=== PATIENT | male | born 1985 ===

== ENCOUNTER 2024-09-12 11:52 | Inpatient (IN) | payer OTHER ==
[~2024-09-12] VITALS: Ht 180.3 cm; Wt 79.3 kg
[2024-09-12] MEDS ORDERED: HydrOXYzine Pamoate 50 MG Cap PO PRN (17:10)
[2024-09-12] MEDS ORDERED: Ibuprofen 600 MG Tab PO PRN (17:10)
[2024-09-12] MEDS ORDERED: LORazepam 2 MG/ML 1ML Injection IM PRN (17:10)
[2024-09-12] MEDS ORDERED: Ondansetron 4 MG SoluTab MM PRN (17:15)
[2024-09-12] MEDS ORDERED: Polyethylene Glycol 3350 17 gm PO PRN (17:15)
[2024-09-12] MEDS ORDERED: Melatonin 3 MG Tab PO PRN (17:15)
[2024-09-12] MEDS ORDERED: LORazepam 2 MG Tab PO PRN (17:15)
[2024-09-12] MEDS ORDERED: OLANZapine ODT 10 MG Tab MM PRN (17:15)
[2024-09-12] MEDS ORDERED: TraZODone HCl 50 MG Tab PO PRN (17:15)
[2024-09-12] MEDS ORDERED: Aluminum Hydroxide 320MG/5ML 473 ML PO PRN (17:20)
[2024-09-12] MEDS ORDERED: DiphenhydrAMINE HCl 50 MG Cap PO PRN (17:20)
[2024-09-12] MEDS ORDERED: Haloperidol Lactate Inj. 5 MG/ML Injection IM PRN (17:20)
[2024-09-12] MEDS ORDERED: DiphenhydrAMINE HCl 50 MG/ML 1ML Vial IV PRN (17:20)
[2024-09-12] MEDS ORDERED: Acetaminophen 325 MG TABLET PO PRN (17:20)
[2024-09-12] MEDS ORDERED: FLU VACC TS2024-25(6MOS UP)/PF 45 MCG/0.5 ML SYRINGE IM ONE (17:20)
[2024-09-12] MEDS ORDERED: Calcium Carbonate 500 MG Tab Chew PO PRN (17:20)
[2024-09-12] MEDS ORDERED: Haloperidol 5 MG Tab PO PRN (17:25)
[2024-09-12 18:10] VITALS: BP 105/75
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
--- NOTE | 2024-09-13 08:11 | NUR ---
AT 0800 AWAKENED PT TO LOOK AT HIS RASH ON HIS LEGS WITH SLIM RAY. SCATTERED REDNESS WITH DRY PATCHES PRESENT. SHOWS SIGNS OF SCRATCHING PRESENT. A FEW SPOTS OVER ARMS. NO SPOTS ON FEET OR BACK OR TRUNK OF BODY. ENCOURAGD NOT TO SCRATCH AND TO DO GOOD HAND WASHING. PT STATES THE RASH IS THE ALUMNIN COMING OUT OF HIS BODY FROM EATING FOODS THAT WAS IN CANS. HOSPITLIST DR. RAMACHANDRAN CALLED TO CONSULT ON PT TODAY. WILL CONTINUE TO MONITOR.
[2024-09-13 08:35] VITALS: BP 140/85
[2024-09-13] MEDS ORDERED: Multivitamins 1 Tab PO SCH (09:00)
[2024-09-13 09:44] VITALS: BP 105/75
[2024-09-13] MEDS ORDERED: OLANZapine ODT 10 MG Tab PO ONE (10:30)
--- NOTE | 2024-09-13 10:59 | NUR ---
AT [address] PT KNOW THAT [address] ALVARADO ORDERED A PILL FOR HIM. EXPLAINED TO PT THAT IT IS A NEW ORDER. PT AGREED TO TKE THE PILL. THEN CHANGED HIS MIND SAYING THAT WE ARE OVER MEDICATING HIM. HE SAID THAT HE WAS GIVEN TO MANY MEDS ALREADY. HE GOT LOUD AND UNREASONABLE. CORY SMALLS AND MYSELF ONCE AGAIN EXPLAINED TO THE PT THAT HE WILL GET IT 2 TIMES A DAY. PT BECAME INAPPROPIATE WITH WORDS TO STAFF AND THREATED TO KICK CORY WALLS. WAS CALLED TO COME ASSIST. DR. ALVARADO WAS CALLED ALSO PT SAID HE NEEDED TO HEAR IT FROM THE DR. ARRIVED. PT HAD GONE TO ROOM. LET PT HAVE A 5-10 MINUTES ALONE THEN AGREEABLE TO TAKE MED. HE TOOK THE MED. WILL LET PT STAY IN ROOM AND REGAIN HIS COMPOSUER AND CALM NOW. THOUGHT PROCESS DURING HIS OUT BURST PROCESS WAS NON RATIONAL AND INTENSE. WILL CONTINUE TO MONITOR.
--- NOTE | 2024-09-13 12:04 | NUR ---
PT JUST FINISHED LUNCH. SEEMS TO BE CALMER AT THIS TIME. WILL CONTINUE TO MONITOR.
--- NOTE | 2024-09-13 13:41 | NUR ---
HEARD YELLING AND WENT TO CHECK ON PT. ASKED IF HE IS OK. TOLD ME TO LEAVE HIS ROOM. PRESENT OUTSIDE THE DOOR WHEN TALKING TO PT. HE SAID TO MEENAKEN LEAVE HIS ROOM. REMINDED PT NOT TO YELL AND TO ASK FOR HELP IF HE NEEDS TO TALK. PT STATED " I WILL YELL IF I WANT TO." PT IS TALKING TO SELF WHEN LEAVING HIS DOOR AREA. PT HOLLERING OUT TO LEAVE HIM THE F ALONE. LEFT ROOM AND LET PT TALK WITH SELF. DID NOT GET TO ASK PT IF HE WAS HEARING VOICES HE WAS UNCOOPERATIVE." DIRECTOR NOTIFED AND WILL TALK WITH PT. WILL CONTINUE TO MONITOR
--- NOTE | 2024-09-13 13:49 | NUR ---
PT HEARD YELLING IN ROOM. PRIMARY RN TO ROOM TO ASK IF PT NEEDED HELP. PT YELLING PROFANITIES AT PRIMARY RN AND TOLD HER TO GET THE FUCK OUT. PRIMARY RN LEFT AND PT CONTINUED YELLING. THIS RN TO ROOM TO ASK IF HE NEEDED HELP. HE REPORTED THAT HE CAN YELL IF HE WANTS. THAT HE WILL RIP MY HEAD OFF AND SHIT DOWN MY NECK IF I TRIED TELLING HIM WHAT TO DO. THIS RN REMINDED PT THAT WE OTHER PT TO CONSIDER. PT YELLED THAT HE IS SCHIZOPHRENIC AND HE CAN DO WHAT THE FUCK EVER HE WANTS. HE AGAIN PHYSICALLY THREATENED THIS RN IF I DIDNT LEAVE HIS ROOM. PT LAYING IN BED WHILE YELLING AND MAKING THREATS. DOOR SHUT AND DIRECTOR AND MD NOTIFIED.
--- NOTE | 2024-09-13 15:56 | NUR ---
PT PACES UP AND DOWN THE HALLS FOR A FEW MINUTES THEN GOES TO HIS ROOM FOR A BIT. WHEN IN HALLS IS TALKING TO HIMSELF AND THROWING HANDS GESTURES LIKE FOR GANGS.
--- NOTE | 2024-09-13 16:52 | NUR ---
SHIFT SUMMARY: PT IS UP IN THE GROUP ROOM. WALKS IN AND OUT. NO TALKING TO HIS SELF AT THIS TIME. STILL DO NOT KNOW IF HE IS SUICIDAL HE WILL NOT OPENLY TALK ABOUT IT. HAS BEEN PACING IN THE HALLWAYS OR GOES INTO HIS ROOM. CAN HEAR HIM ATALKING TO HIMSELF BUT IT IS UNCLEAR WHAT HE IS SAYING. PT HAS HAD DELUSIONAL THOUGHTS WHEN HE IS VERBALIZING ANGER AT STAFF TODAY. HE HAS GONE INTO EAT MEALS AND DID NOT PARTICIPATE IN GROUPS. SEEN PT AND PT WILL RECEIVE ZYPREZA 20MG AT BEDTIME. WILL CONTINUE TO MONITOR PT.
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
[2024-09-13 20:36] VITALS: BP 116/79
[2024-09-13] MEDS ORDERED: OLANZapine ODT 10 MG Tab MM SCH ×2 (21:00)
[2024-09-13] MEDS ORDERED: OLANZapine ODT 5 MG Tab MM SCH (21:00)
[2024-09-13] MEDS ORDERED: Triamcinolone Acet 0.025% Ointment 15 GM TOP SCH (21:00)
--- NOTE | 2024-09-14 04:04 | NUR ---
PATIENT WAS AWAKE AND PACING THE HALLWAY AT THE BEGINNING OF THE SHIFT. HE STATED THAT HE HAS HAD A GOOD DAY. HE JOINED THE GROUP FOR SNACK IN THE DINING ROOM AT 1999. HE HAD HIS MEDICATIONS EARLY, BUT WAS OFFERED PRNS, WHICH HE DECLINED. HE PRESENTED DROWSY, AND WENT TO BED IMMEDIATELY AFTER SNACK TIME. HE WAS NOTED TO BE RESTING IN BED QUIETLY WITH EYES CLOSED AND RESPIRATIONS CONFIRMED FOR THE REMAINDER OF THE SHIFT. HE HAD NO S/SX OF SUICIDAL IDEATION OR HARMING OTHERS. CONTINUING TO MONITOR FOR SAFETY WITH Q15 MINUTE CHECKS.
--- NOTE | 2024-09-14 10:50 | NUR ---
SUMMARY Fan Blade Aligner assumed pt care at 0830. Pt A&O, cooperative, eye contact is appropriate. Pt described his mood as "sloshy," affect is constricted. Pt denies SI, HI; he endorses AH of non-command nature, describing them as "background voices." Pt is desplaying delusional thought, flight of ideas, and some paranoid thoughts. Pt yelled out while in the shower, but said that he was "just venting." Pt participated in morning group and spent some time walking in the common areas, but spent most of this time in his room.
[2024-09-14 10:53] VITALS: BP 112/82
--- NOTE | 2024-09-14 17:25 | NUR ---
SHIFT SUMMARY : PT DENIES TO BE SI.. DOES HAVE AUDIBLE VOICES PRESENT. HE ENGAGES CONVERSATIONS WITH HIMSELF WHILE WALKING UP AND DOWN THE HALLWAY. HE ALSO DOES THE SAME WHEN HE IS IN HIS ROOM. HAS DELUSIONAL THOUGHT. THESE INCREASE WHEN HE GETS ANGRY AND RAMPS UP. HE HAD ABOUT 3 EPISODES TODAY. TRIED TO GIVE DOSE OF ZYPREXA BUT HE WOULD NOT TAKE IT. STATES HE TAKES TO MANY PILLS HERE. DID GO INTO THE TV ROOM FOR A COUPLE MINUTES A FEW TIMES BUT DID NOT STAY. PT DOES DISPLAY HOSTILE ANGER WHEN HE RAMPS UP AND STARTS CURSING SUCH TERRIBLE WORDS AND ACCUSATIONS TOWARDS STAFF. WILL CONTINUE TO MONITOR.
--- NOTE | 2024-09-14 18:29 | NUR ---
THIS RN WAS WATCHING THE MONITORS AND MILIEU WHEN PT WALKED BUY AND WAS SAYING THINGS. TOLD PT TO DO NOT TALK TO ME HE HAS BEEN ACCUSING RN OF MANY THINGS PT CAME UP TO THE COUNTER AND THREW A BALL AT ME. CALLED SECURITY AND CHARGE NURSE CALLED VOCATIONAL PLACEMENT SPECIALIST TO THE UNIT. PT UNSAFE AND DANGER TO OTHERS AT THIS POINT. SECURITY ARRIVED AND PT WENT TO HIS ROOM AND WAS SAYING THAT HE DID NOTHING WRONG. MEDS PULLED UP AND GIVEN TO HIM PO. SECURITY STAYED FOR 15 MINUTES AT LEAST. PT WENT TO HIS ROOM. WILL CONTINUE TO MONITOR.
--- NOTE | 2024-09-15 04:14 | NUR ---
PATIENT WAS IN THE HALLWAY PACING AT THE BEGINNING OF THE SHIFT. RN APPROACHED AND ASKED ABOUT PATIENT'S DAY. HE STATED, "I'M DOING GREAT, HOW ARE YOU?" AND FIST BUMPED THIS RN. HE THEN STATED, "I'M GOING TO BED" AND WENT INTO HIS ROOM. HE COULD BE HEARD SHOWERING FOR SOME TIME, BUT DID NOT WANT TO COME OUT FOR SNACK. HE WAS MOSTLY IN BED RESTING WITH EYES CLOSED AND RESPIRATIONS CONFIRMED. HE HAD NO S/SX SUICIDAL IDEATION OR SELF HARM. HE MADE NO THREATS TO OTHERS THIS SHIFT. CONTINUING TO MONITOR FOR SAFETY WITH Q15 MINUTE CHECKS.
[2024-09-15] MEDS ORDERED: LORazepam 2 MG Tab PO PRN (10:55)
[2024-09-15 13:44] VITALS: BP 127/69
[2024-09-15] MEDS ORDERED: OLAN20 MM (14:07)
--- NOTE | 2024-09-15 14:25 | NUR ---
DISCHARGE PLANNING: HE HAS DECLINED MEDICATIONS AND DECLINED TO PARTICIPATE IN GROUP WITH OT. PT AGREEABLE TO DISCHARGE HOME AND FOLLOW UP WITH MENTAL HEALTH IN [facility] AND HIS WITH HIS THERAPIST. AGREEABLE TO TAKING MEDICATIONS PRESCRIBED. CALL PLACED TO [facility] AND TRANPORT REQUESTED TO AT PT REQUEST. THEY WILL BE CALLING BACK WITH A ULTRASONIC SOLDERER TIME AND THE NAME OF THE TRANSPORT COMPANY.
[2024-09-15] MEDS ORDERED: OLANZapine ODT 10 MG Tab PO ONE (15:55)
--- NOTE | 2024-09-15 16:20 | NUR ---
PRIOR TO DISCHARGE PT WAS SEXUALLY INAPPROPRIATE WITH FEMALE STAFF. PT DISCHARGED TO GO BACK TO [place] AT HIS REQUEST. PT VERBALIZED TO STAFF THAT HE IS NOT A DANGER TO HIMSELF OR ANYONE ELSE. PT WAS MEDICATED BY MIGUELINA RAY PRIOR TO DISCHARGE. SAFETY PLAN IN PLACE AND WITNESSED BY STAFF AND SECURITY. PT BELONGINGS RETURNED BY FREDDY BAILEY. PT AMBULATED OUT OF DEPT WITH BELONGINGS AND DISCHARGE INSTRUCTIONS IN HAND. PT AWARE THAT HE NEEDS TO FOLLOW UP WITH [facility] UPON RETURNING TO [place].
[2024-09-15] MEDS ORDERED: OLANZapine ODT 10 MG Tab MM SCH ×3 (18:00)
[2024-09-15] MEDS ORDERED: OLANZapine ODT 10 MG Tab PO SCH (21:00)
== END 2024-09-15 16:20 | disposition home or self-care (01) | DRG 885 ==
LOC: BHU 11:52
PROVIDERS: ADMIT Psychiatry & Neurology Psychiatry
DX: F20.0 Paranoid schizophrenia (principal); R45.1 Restlessness and agitation; F12.10 Cannabis abuse, uncomplicated; L30.9 Dermatitis, unspecified; Z79.899 Other long term (current) drug therapy; Z79.1 Long term (current) use of non-steroidal anti-inflammatories (NSAID); Z79.891 Long term (current) use of opiate analgesic
CPT/HCPCS: A9270; J1200; J1630; J2060